=== PATIENT | female | born 1985 | race Caucasian/White ===

== ENCOUNTER 2018-05-03 22:40 | Emergency (ER) | payer OTHER ==
[2018-05-03 22:45] VITALS: Ht 175.3 cm
[2018-05-03 23:24] VITALS: BP 168/116
== END 2018-05-03 23:24 | disposition left against medical advice (07) ==
LOC: ED 22:40
DX: L29.9 Pruritus, unspecified (principal); R21 Rash and other nonspecific skin eruption; R44.1 Visual hallucinations; Z88.1 Allergy status to other antibiotic agents; K90.0 Celiac disease; Z97.5 Presence of (intrauterine) contraceptive device